=== PATIENT | female | born 1950 | race American Indian/Alaskan Native ===

== ENCOUNTER 2016-12-04 22:47 | Inpatient (IN) | payer MEDICARE ==
[2016-12-05] MEDS ORDERED: ZOFRAN ONE ×2 (00:01→04:04)
[2016-12-05] MEDS ORDERED: ZOFRAN IV ONE (00:06)
[2016-12-05] MEDS ORDERED: NACL 0.9% 1000 ML 1,000 ML IV ONE ×2 (00:32→01:54)
[2016-12-05] MEDS ORDERED: DILAUDID IV ONE ×2 (00:32→04:07)
--- NOTE | 2016-12-05 00:38 | Emergency Department Report ---
ED N/V/D HPI - General Chief complaint: Nausea/Vomiting/Diarrhea Stated complaint: N/V Time Seen by Provider: 12/05/16 00:05 Source: patient, family, EMS Mode of arrival: Stretcher Limitations: No Limitations - History of Present Illness Initial comments: 66-year-old female with a past medical history of diabetes, hypertension, and fibromyalgia presents to the hospital complaints of nausea, vomiting, abdominal 2 days. Patient has had vomiting with poor by mouth intake. She did have diarrhea but that seems to have improved. She denies fever, melena, hematochezia, hematemesis, melena or recent travel. Abdominal surgery includes previous hysterectomy. Pain rated moderate to severe in intensity, described as intermittent cramping in the lower abdomen. - Related Data Home Medications Medication Instructions Recorded Confirmed Last Taken Adalimumab [Humira] 10 mg SQ QMONTH 10/01/15 12/05/16 12/04/16 Cyclobenzaprine HCl [Flexeril 5 MG 5 mg PO TID 10/01/15 12/05/16 12/04/16 TAB] Sertraline [Zoloft] 100 mg PO QDAY 10/01/15 12/05/16 12/04/16 cloNIDine [Catapres] 0.1 mg PO BID 10/01/15 12/05/16 12/04/16 metFORMIN [Glucophage] 500 mg PO QDAY 10/01/15 12/05/16 12/04/16 Previous Rx's Medication Instructions Recorded Last Taken Type Cephalexin [Keflex] 500 mg PO Q6HR #28 capsule 10/02/15 12/04/16 Rx Methocarbamol [Robaxin TAB] 1,500 mg PO TID PRN #30 tab 10/02/15 12/04/16 Rx Permethrin 5% [Acticin 5% CREAM] 1 applicatio TP ONCE #2 tube 10/02/15 12/04/16 Rx Ibuprofen [Motrin 800 MG tab] 1 tab PO Q8HR PRN #30 tablet 01/25/16 12/04/16 Rx Lisinopril/Hydrochlorothiazide 1 tab PO QDAY #30 tablet 02/29/16 12/04/16 Rx [Zestoretic 10-12.5 mg] cloNIDine [Catapres] 0.1 mg PO BID #60 tablet 02/29/16 12/04/16 Rx ALBUTEROL Inhaler [ProAir HFA 2 puff IH QID PRN #1 inhalation 05/04/16 12/04/16 Rx Inhaler] Allergies Allergy/AdvReac Type Severity Reaction Status Date / Time No Known Allergies Allergy Verified 10/01/15 22:26 ED Review of Systems ROS: Stated complaint: N/V Other details as noted in HPI Comment: All other systems reviewed and negative Other: Constitutional: No fevers chills Eyes: No eye pain visual changes ENT: No ear pain or throat pain Neck: Denies pain Respiratory: Denies cough wheezing shortness of breath Cardiovascular: Denies chest pain, palpitations, syncope GI: As per HPI : Denies dysuria Musculoskeletal: Denies back pain Skin: Denies rash, lesions, erythema Neurologic: Denies headache, numbness, weakness Psychiatric: Denies suicidal ideation, hallucinations ED Past Medical Hx - Past Medical History Previous Medical History?: Yes Hx Hypertension: Yes Hx Diabetes: Yes Hx Arthritis: Yes (RA) Hx Asthma: Yes Additional medical history: Lyme Disease, Fibromyalgia hiatal hernia - Surgical History Past Surgical History?: Yes Additional Surgical History: thoracic /neck / back/ganglion cyst removal hyst - Social History Smoking Status: Never Smoker Substance Use Type: Non Opiate Pain, Prescribed - Medications Home Medications: Home Medications Medication Instructions Recorded Confirmed Last Taken Type Adalimumab [Humira] 10 mg SQ QMONTH 10/01/15 12/05/16 12/04/16 History Cyclobenzaprine HCl [Flexeril 5 MG 5 mg PO TID 10/01/15 12/05/16 12/04/16 History TAB] Sertraline [Zoloft] 100 mg PO QDAY 10/01/15 12/05/16 12/04/16 History cloNIDine [Catapres] 0.1 mg PO BID 10/01/15 12/05/16 12/04/16 History metFORMIN [Glucophage] 500 mg PO QDAY 10/01/15 12/05/16 12/04/16 History Cephalexin [Keflex] 500 mg PO Q6HR #28 capsule 10/02/15 12/05/16 12/04/16 Rx Methocarbamol [Robaxin TAB] 1,500 mg PO TID PRN #30 tab 10/02/15 12/05/16 Rx Permethrin 5% [Acticin 5% CREAM] 1 applicatio TP ONCE #2 tube 10/02/15 12/05/16 12/04/16 Rx Ibuprofen [Motrin 800 MG tab] 1 tab PO Q8HR PRN #30 tablet 01/25/16 12/05/16 Rx Lisinopril/Hydrochlorothiazide 1 tab PO QDAY #30 tablet 02/29/16 12/05/16 Rx [Zestoretic 10-12.5 mg] cloNIDine [Catapres] 0.1 mg PO BID #60 tablet 02/29/16 12/05/16 12/04/16 Rx ALBUTEROL Inhaler [ProAir HFA 2 puff IH QID PRN #1 inhalation 05/04/16 12/05/16 12/04/16 Rx Inhaler] ED Physical Exam - General Limitations: No Limitations - Other Other exam information: General: No limitations, not distressed secondary to pain Head exam: Atraumatic, normocephalic Eyes exam: Normal appearance, nonicteric sclerae ENT: Dry mucous membrane Neck exam: Normal inspection, full range of motion Respiratory exam: Clear to auscultation bilateral, no wheezes, rales, crackles Cardiovascular: Normal rate and rhythm, normal heart sounds Abdomen: Soft, nondistended, and generalized lower abdominal tenderness with normal bowel sounds, no rebound, or guarding Extremity: Full range of motion normal inspection no deformity Back: Normal Inspection, full range of motion, no tenderness Neurologic: Alert, oriented x3, cranial nerves intact, no motor or sensory deficit Psychiatric: normal affect, normal mood Skin: Warm, dry, intact ED Course Vital Signs 12/04/16 12/04/16 12/04/16 23:39 23:40 23:46 Temperature 98.7 F Pulse Rate 94 H 105 H Respiratory 19 20 Rate Blood Pressure 184/64 184/64 Blood Pressure 184/64 [Right] O2 Sat by Pulse 99 100 99 Oximetry 12/04/16 12/04/16 12/05/16 23:50 23:52 00:00 Temperature Pulse Rate 92 H 96 H 116 H Respiratory 11 L 19 27 H Rate Blood Pressure 167/61 167/61 167/61 Blood Pressure [Right] O2 Sat by Pulse 100 100 100 Oximetry 12/05/16 12/05/16 12/05/16 00:10 00:20 00:30 Temperature Pulse Rate 95 H 93 H 102 H Respiratory 15 15 24 Rate Blood Pressure 167/61 170/72 170/72 Blood Pressure [Right] O2 Sat by Pulse 99 100 100 Oximetry 12/05/16 12/05/16 12/05/16 00:40 00:50 01:00 Temperature Pulse Rate 101 H 101 H 100 H Respiratory 19 10 L 14 Rate Blood Pressure 154/62 Blood Pressure [Right] O2 Sat by Pulse 99 100 94 Oximetry 12/05/16 12/05/16 12/05/16 01:10 01:20 01:30 Temperature Pulse Rate 100 H 101 H 101 H Respiratory 12 9 L 14 Rate Blood Pressure 166/92 154/76 155/64 Blood Pressure [Right] O2 Sat by Pulse 99 99 98 Oximetry 12/05/16 12/05/16 12/05/16 01:40 01:50 02:00 Temperature Pulse Rate 106 H 98 H 103 H Respiratory 24 13 17 Rate Blood Pressure 155/64 148/64 148/64 Blood Pressure [Right] O2 Sat by Pulse 99 99 98 Oximetry 12/05/16 12/05/16 12/05/16 02:42 02:50 03:00 Temperature Pulse Rate 109 H 106 H 108 H Respiratory 16 11 L 13 Rate Blood Pressure 144/56 144/69 Blood Pressure [Right] O2 Sat by Pulse 99 98 98 Oximetry 12/05/16 12/05/16 12/05/16 03:10 03:20 03:30 Temperature Pulse Rate 106 H 105 H 102 H Respiratory 16 20 16 Rate Blood Pressure 144/69 144/69 140/68 Blood Pressure [Right] O2 Sat by Pulse 99 99 99 Oximetry 12/05/16 12/05/16 12/05/16 03:40 03:50 04:00 Temperature Pulse Rate 100 H 104 H 100 H Respiratory 21 33 H 13 Rate Blood Pressure 140/68 162/52 162/52 Blood Pressure [Right] O2 Sat by Pulse 99 98 99 Oximetry 12/05/16 12/05/16 12/05/16 04:10 04:20 04:30 Temperature Pulse Rate 102 H 106 H 109 H Respiratory 18 20 28 H Rate Blood Pressure 150/70 140/56 140/56 Blood Pressure [Right] O2 Sat by Pulse 97 91 97 Oximetry 12/05/16 12/05/16 12/05/16 04:40 04:50 05:00 Temperature Pulse Rate 103 H 105 H 106 H Respiratory 21 19 18 Rate Blood Pressure 146/54 150/64 142/63 Blood Pressure [Right] O2 Sat by Pulse 91 93 93 Oximetry 12/05/16 12/05/16 05:10 05:20 Temperature Pulse Rate 105 H 108 H Respiratory 17 18 Rate Blood Pressure 142/63 136/63 Blood Pressure [Right] O2 Sat by Pulse 95 93 Oximetry - Reevaluation(s) Reevaluation #1: 12/05/16 00:42 Dilaudid 0.5 mg IV, normal saline, and Zofran ordered Reevaluation #2: 12/05/16 05:42 Patient received 3 L of normal saline and still has a resting tachycardia. She does report feeling somewhat better. ED Medical Decision Making - Lab Data Result diagrams: 12/05/16 00:34 12/05/16 00:34 Lab Results 12/05/16 12/05/16 12/05/16 Range/Units 00:13 00:34 00:34 WBC 12.3 H (4.5-11.0) K/mm3 RBC 4.64 (3.65-5.03) M/mm3 Hgb 12.6 (10.1-14.3) gm/dl Hct 40.3 (30.3-42.9) % MCV 87 (79-97) fl MCH 27 L (28-32) pg MCHC 31 (30-34) % RDW 15.2 (13.2-15.2) % Plt Count 216 (140-440) K/mm3 Lymph % (Auto) 13.7 (13.4-35.0) % [place] % (Auto) 8.6 H (0.0-7.3) % Eos % (Auto) 0.0 (0.0-4.3) % Baso % (Auto) 0.2 (0.0-1.8) % Lymph # 1.7 (1.2-5.4) K/mm3 [place] # 1.0 H (0.0-0.8) K/mm3 Eos # 0.0 (0.0-0.4) K/mm3 Baso # 0.0 (0.0-0.1) K/mm3 Seg Neutrophils % 77.5 H (40.0-70.0) % Seg Neutrophils # 9.5 H (1.8-7.7) K/mm3 Sodium 146 H (137-145) mmol/L Potassium 4.5 (3.6-5.0) mmol/L Chloride 103.5 (98-107) mmol/L Carbon Dioxide 12 L (22-30) mmol/L Anion Gap 35 mmol/L BUN 25 H (7-17) mg/dL Creatinine 1.3 H (0.7-1.2) mg/dL Estimated GFR 50 ml/min BUN/Creatinine Ratio 19.23 % Glucose 109 H (65-100) mg/dL POC Glucose 113 H (70-105) Calcium 9.7 (8.4-10.2) mg/dL Total Bilirubin 0.3 (0.1-1.2) mg/dL AST 19 (5-40) units/L ALT 16 (7-56) units/L Alkaline Phosphatase 58 (35-129) units/L Total Protein 8.6 H (6.3-8.2) g/dL Albumin 4.2 (3.9-5) g/dL Albumin/Globulin Ratio 1.0 % Lipase 28 (13-60) units/L Urine Color (Yellow) Urine Turbidity (Clear) Urine pH (5.0-7.0) Ur Specific [place] (1.003-1.030) Urine Protein (Negative) mg/dL Urine Glucose (UA) (Negative) mg/dL Urine Ketones (Negative) mg/dL Urine Blood (Negative) Urine Nitrite (Negative) Urine Bilirubin (Negative) Urine Urobilinogen (<2.0) mg/dL Ur Leukocyte Esterase (Negative) Urine WBC (Auto) (0.0-6.0) /HPF Urine RBC (Auto) (0.0-6.0) /HPF U Epithel Cells (Auto) (0-13.0) /HPF 12/05/16 Range/Units 01:52 WBC (4.5-11.0) K/mm3 RBC (3.65-5.03) M/mm3 Hgb (10.1-14.3) gm/dl Hct (30.3-42.9) % MCV (79-97) fl MCH (28-32) pg MCHC (30-34) % RDW (13.2-15.2) % Plt Count (140-440) K/mm3 Lymph % (Auto) (13.4-35.0) % [place] % (Auto) (0.0-7.3) % Eos % (Auto) (0.0-4.3) % Baso % (Auto) (0.0-1.8) % Lymph # (1.2-5.4) K/mm3 [place] # (0.0-0.8) K/mm3 Eos # (0.0-0.4) K/mm3 Baso # (0.0-0.1) K/mm3 Seg Neutrophils % (40.0-70.0) % Seg Neutrophils # (1.8-7.7) K/mm3 Sodium (137-145) mmol/L Potassium (3.6-5.0) mmol/L Chloride (98-107) mmol/L Carbon Dioxide (22-30) mmol/L Anion Gap mmol/L BUN (7-17) mg/dL Creatinine (0.7-1.2) mg/dL Estimated GFR ml/min BUN/Creatinine Ratio % Glucose (65-100) mg/dL POC Glucose (70-105) Calcium (8.4-10.2) mg/dL Total Bilirubin (0.1-1.2) mg/dL AST (5-40) units/L ALT (7-56) units/L Alkaline Phosphatase (35-129) units/L Total Protein (6.3-8.2) g/dL Albumin (3.9-5) g/dL Albumin/Globulin Ratio % Lipase (13-60) units/L Urine Color Yellow (Yellow) Urine Turbidity Clear (Clear) Urine pH 5.0 (5.0-7.0) Ur Specific [place] 1.014 (1.003-1.030) Urine Protein 30 mg/dl (Negative) mg/dL Urine Glucose (UA) Neg (Negative) mg/dL Urine Ketones 80 (Negative) mg/dL Urine Blood Neg (Negative) Urine Nitrite Neg (Negative) Urine Bilirubin Neg (Negative) Urine Urobilinogen < 2.0 (<2.0) mg/dL Ur Leukocyte Esterase Neg (Negative) Urine WBC (Auto) < 1.0 (0.0-6.0) /HPF Urine RBC (Auto) 0.0 (0.0-6.0) /HPF U Epithel Cells (Auto) < 1.0 (0-13.0) /HPF - Radiology Data Radiology results: report reviewed (CT abdomen and pelvis with IV contrast: No gross focal inflammatory changes of the abdomen and pelvis. Large and small bowel loops normal in caliber. Moderate stool within segments of the colon. Appendix is normal) - Medical Decision Making Patient has ketones in the urine with a possible anion gap and low bicarbonate. Could be related to acute gastroenteritis with associated dehydration and ketosis. Patient has continued tachycardia despite receiving 3 L of normal saline. Continued pain despite receiving Dilaudid and continued nausea despite receiving Zofran. Additional Reglan and Benadryl also ordered. Patient will be admitted to the hospital for further treatment here CT does not reveal any acute infectious or surgical emergency. - Differential Diagnosis gastroenteritis, appendicitis, diverticulitis, DKA Critical Care Time: No Critical care attestation.: If time is entered above; I have spent that time in minutes in the direct care of this critically ill patient, excluding procedure time. ED Disposition Clinical Impression: Gastroenteritis, Ketosis, Dehydration Disposition: OP ADMITTED IP TO THIS HOSP Is pt being admited?: Yes Does the pt Need Aspirin: No Condition: Stable Time of Disposition: 05:44 (Dr Collado/hosp)
[2016-12-05 01:12] LABS: Basophils % (Auto) 0.2 % (0.0-1.8); Hematocrit 40.3 % (30.3-42.9); Hemoglobin 12.6 gm/dl (10.1-14.3); Mean Corpuscular HGB Conc 31 % (30-34); Mean Corpuscular Hemoglobin 27 pg (28-32); Mean Corpuscular Volume 87 fl (79-97); Platelet Count 216 K/mm3 (140-440); Red Blood Count 4.64 M/mm3 (3.65-5.03); Red Cell Distribution Width 15.2 % (13.2-15.2); White Blood Count 12.3 K/mm3 (4.5-11.0)
[2016-12-05 01:34] LABS: Albumin 4.2 g/dL (3.9-5); BUN/Creatinine Ratio 19.23; Bilirubin,Total 0.3 mg/dL (0.1-1.2); Calcium 9.7 mg/dL (8.4-10.2); Chloride 103.5 mmol/L (98-107); Potassium 4.5 mmol/L (3.6-5.0); Total Protein 8.6 g/dL (6.3-8.2)
[2016-12-05] MEDS ORDERED: NACL ONE (01:36)
[2016-12-05 02:04] LABS: Bilirubin,Urine NEG (Negative); Blood,Urine NEG (Negative); Ketones,Urine 80 mg/dL (Negative); Leukocyte Esterase,Urine NEG (Negative); Nitrite,Urine NEG (Negative); Urobilinogen,Urine < 2.0 mg/dL (<2.0); WBC,Urine < 1.0 /HPF (0.0-6.0)
--- NOTE | 2016-12-05 03:23 | Cat Scan Report ---
FINAL REPORT EXAM: CT ABDOMEN PELVIS W CON HISTORY: abd pain ,n,v,d COMPARISON: None available. TECHNIQUE: Contiguous axial images were obtained. Additional sagittal and coronal reformatted images were obtained. Administration of IV contrast given per institution protocol. Images submitted for interpretation. 100 cc Isovue 300. FINDINGS: Mild linear atelectasis at the lung bases. Diffuse fatty infiltration of the liver with more focal fatty infiltration along the falciform ligament. Mild distention of the gallbladder. No gross inflammatory changes the gallbladder. No calcified gallstones or biliary dilatation. Homogeneous enhancement spleen and pancreas. No adrenal mass. Right renal cyst measuring 1.5 centimeters. 4 millimeter left renal cyst. No solid renal lesion. No hydronephrosis. Severe calcification aorta. Aorta remains normal in caliber. Urinary bladder is grossly unremarkable. Uterus is surgically absent. Bilateral ovaries appear to remain. No free fluid or lymphadenopathy in the pelvic cavity. Large and small bowel loops are normal in caliber. Moderate stool within portions of the colon. The appendix is normal in caliber measuring 5 millimeters. No gross focal inflammatory changes of the bowel. Mild degenerative changes of lumbar spine. Lumbar vertebral body heights are preserved. Bony pelvis is grossly intact. IMPRESSION: No gross focal inflammatory changes of the abdomen and pelvis. Large and small bowel loops normal in caliber. Moderate stool within segments of the colon. The appendix is normal in caliber.
[2016-12-05] MEDS ORDERED: DILAUDID ONE (04:04)
[2016-12-05] MEDS ORDERED: REGLAN IV ONE (04:07)
[2016-12-05] MEDS ORDERED: BENADRYL IV ONE (04:07)
[2016-12-05] MEDS ORDERED: ZOFRAN IV PRN (06:20)
[2016-12-05] MEDS ORDERED: TYLENOL PO PRN (06:20)
[2016-12-05] MEDS ORDERED: DULCOLAX PR PRN (06:20)
[2016-12-05] MEDS ORDERED: MILK OF MAGNESIA PO PRN (06:20)
[2016-12-05] MEDS ORDERED: D50W (25GM) IV PRN (06:20)
--- NOTE | 2016-12-05 06:25 | History and Physical Report ---
History of Present Illness Date of examination: 12/05/16 History of present illness: 66-year-old man with a history of hypertension, diabetes comes emergency room with complaints of nausea vomiting diarrhea 4 days. Denies any fever or chills , recent antibiotic Patient denies chest pain, palpitation, shortness of breath, cough, abdominal pain, hematochezia, dysuria, frequency, focal weakness, dysarthria, fever chills , polydipsia polyuria, hot or cold intolerance, easy bruisability, or rash or bleeding from mucosal membrane, rhinorrhea, epistaxis, earache, tinnitus, blurry vision, eye discharge, anxiety, depression. Other review of systems negative PAST SURGICAL HISTORY: Back surgery, neck surgery SOCIAL HISTORY: Denies alcohol, tobacco, drugs FAMILY HISTORY: Hypertension Medications and Allergies Allergies Allergy/AdvReac Type Severity Reaction Status Date / Time No Known Allergies Allergy Verified 10/01/15 22:26 Home Medications Medication Instructions Recorded Confirmed Last Taken Type Adalimumab [Humira] 10 mg SQ QMONTH 10/01/15 12/05/16 12/04/16 History Cyclobenzaprine HCl [Flexeril 5 MG 5 mg PO TID 10/01/15 12/05/16 12/04/16 History TAB] Sertraline [Zoloft] 100 mg PO QDAY 10/01/15 12/05/16 12/04/16 History cloNIDine [Catapres] 0.1 mg PO BID 10/01/15 12/05/16 12/04/16 History metFORMIN [Glucophage] 500 mg PO QDAY 10/01/15 12/05/16 12/04/16 History Cephalexin [Keflex] 500 mg PO Q6HR #28 capsule 10/02/15 12/05/16 12/04/16 Rx Methocarbamol [Robaxin TAB] 1,500 mg PO TID PRN #30 tab 10/02/15 12/05/16 Rx Permethrin 5% [Acticin 5% CREAM] 1 applicatio TP ONCE #2 tube 10/02/15 12/05/16 12/04/16 Rx Ibuprofen [Motrin 800 MG tab] 1 tab PO Q8HR PRN #30 tablet 01/25/16 12/05/16 Rx Lisinopril/Hydrochlorothiazide 1 tab PO QDAY #30 tablet 02/29/16 12/05/16 Rx [Zestoretic 10-12.5 mg] cloNIDine [Catapres] 0.1 mg PO BID #60 tablet 02/29/16 12/05/16 12/04/16 Rx ALBUTEROL Inhaler [ProAir HFA 2 puff IH QID PRN #1 inhalation 05/04/16 12/05/16 12/04/16 Rx Inhaler] Exam - Physical Exam Narrative exam: Gen. appearance: Patient lying in bed, no apparent distress HEENT: Normocephalic, atraumatic, pupils equally round and reactive to light, extraocular movement intact, and no sclericterus,. No JVD or thyromegaly or nodule,neck supple, no carotid bruit ,mucous membranes dry, no exudate or erythema Heart: S1, S2, regular rate and rhythm Lungs: Clear to auscultation bilaterally, breathing comfortable Abdomen: Positive bowel sounds, nontender, nondistended, no organomegaly Extremity: No edema, cyanosis, clubbing Skin: No rash, nodules, warm, dry Neuro: Oriented 3, cranial nerves II-12 intact, speech is fluent, motor and sensory intact - Constitutional Vitals: Temp Pulse Resp BP Pulse Ox 98.7 F 102 H 22 144/55 98 12/04/16 23:46 12/05/16 06:10 12/05/16 06:10 12/05/16 06:10 12/05/16 06:10 Results - Labs CBC & Chem 7: 12/05/16 00:34 12/05/16 00:34 Labs: Abnormal lab results 12/05/16 12/05/16 12/05/16 Range/Units 00:13 00:34 00:34 WBC 12.3 H (4.5-11.0) K/mm3 MCH 27 L (28-32) pg [place] % (Auto) 8.6 H (0.0-7.3) % [place] # 1.0 H (0.0-0.8) K/mm3 Seg Neutrophils % 77.5 H (40.0-70.0) % Seg Neutrophils # 9.5 H (1.8-7.7) K/mm3 Sodium 146 H (137-145) mmol/L Carbon Dioxide 12 L (22-30) mmol/L BUN 25 H (7-17) mg/dL Creatinine 1.3 H (0.7-1.2) mg/dL Glucose 109 H (65-100) mg/dL POC Glucose 113 H (70-105) Total Protein 8.6 H (6.3-8.2) g/dL - Imaging and Cardiology CT scan - abdomen: report reviewed CT scan - pelvis: report reviewed Assessment and Plan Acute renal failure Gastroenteritis,. viral Hypertension Diabetes of 2 Admits medicine Start IV fluids, send stool studies Check fingersticks initiate insulin sliding scale Start DVT prophylaxis Continued appropriate outpatient medications
[2016-12-05] MEDS ORDERED: NACL 0.45% 1000 ML 1,000 ML IV SCH (07:00)
--- NOTE | 2016-12-05 07:01 | Admit Criteria Form ---
Admission Criteria Documentation: GASTROENTERITIS Clinical Indications for Admission to Inpatient Care (Place 'X' for any and all applicable criteria): Admission is indicated for ANY ONE of the following (1)(2)(3)(4)(5)(6): [ X]I. Inpatient admission required rather than observation care (Also use Gastroenteritis: Observation Care as appropriate) because of ANY ONE of the following: [X ]a) Vomiting that is severe or persistent [ ]b) Dehydration that is severe or persistent [ ]c) Hemodynamic instability that is severe or persistent [ ]d) Signs of intestinal obstruction or peritonitis [A] [ ]e) Hemolytic uremic syndrome is diagnosed. [ ]f) Absent bowel sounds with complete ileus (2) [ ]g) IV fluid to replace significant ongoing losses (greater than 3 L/m2 per day) [ ]h) Parenteral nutrition regimen that must be implemented on inpatient basis [X ]i) Other condition, treatment or monitoring requiring inpatient admission [ ]II. Suspected severe infection (eg, presence of high fever, severe or bloody diarrhea)(7)(8) [ ]III. Severe abdominal tenderness [ ]IV. Toxic megacolon Extended stay beyond goal length of stay may be needed for(4)(5)(6)(18) [ ]a) Persistent vital sign changes, severe electrolyte imbalance, or ongoing fluid losses that require continued hospitalization [ ]b) Other diagnosed cause for gastrointestinal symptoms (eg, intestinal obstruction,inflammatory bowel disease) that requires continued hospitalization [ ]c) Severe Clostridium difficile infection(8)(22) [ ]d) Bacterial dysentery(7) [ ]e) Radiation gastroenteritis [ ]f) Endoscopy with lesion [ ]g) Clinically significant medical comorbidities that require inpatient care [ ]h) Older patients (65 years or older) [ ]i) Hemolytic uremic syndrome (20) [ ]j) Toxic megacolon The original [employer] content created by [employer] has been revised. The portions of the content which have been revised are identified through the use of italic text or in bold, and [facility] has neither reviewed nor approved the modified material. All other unmodified content is copyright [email or web address]. Please see references footnoted in the original [email or web address] edition 2016 Admission Criteria Met: Yes
[2016-12-05] MEDS ORDERED: NACL 0.45% 1000 ML 1,000 ML IV ONE (08:11)
[2016-12-05] MEDS: NOVOLOG SUB-Q SCH ×3 (08:27→18:58)
--- NOTE | 2016-12-05 10:35 | Event Note ---
Date: 12/05/16 Patient was admitted this morning with acute gastroenteritis Medical records reviewed, agreed with the plan of care Continue current management, possible discharge home tomorrow if stable Plan of care discussed with the patient and the nurse verbalized understanding
[2016-12-05] MEDS: LOVENOX SUB-Q SCH (16:24)
[2016-12-05] MEDS ORDERED: PROAIR IH PRN (18:18)
[2016-12-05] MEDS ORDERED: PROVENTIL IH PRN (18:31)
[2016-12-05] MEDS ORDERED: PERCOCET 5/325 PO PRN (18:56)
[2016-12-05] MEDS ORDERED: ACTICIN TP SCH (20:00)
[2016-12-06] MEDS: NOVOLOG SUB-Q SCH ×5 (00:30→23:30)
[2016-12-06 05:32] LABS: Basophils % (Auto) 0.7 % (0.0-1.8); Eosinophils % (Auto) 0.1 % (0.0-4.3); Hematocrit 36.7 % (30.3-42.9); Hemoglobin 11.7 gm/dl (10.1-14.3); Mean Corpuscular HGB Conc 32 % (30-34); Mean Corpuscular Hemoglobin 28 pg (28-32); Mean Corpuscular Volume 87 fl (79-97); Platelet Count 174 K/mm3 (140-440); Red Blood Count 4.22 M/mm3 (3.65-5.03); Red Cell Distribution Width 15.1 % (13.2-15.2); White Blood Count 11.1 K/mm3 (4.5-11.0)
[2016-12-06 05:34] LABS: Anion Gap 25 mmol/L; BUN/Creatinine Ratio 15.45; Blood Urea Nitrogen 17 mg/dL (7-17); Calcium 9.4 mg/dL (8.4-10.2); Carbon Dioxide 16 mmol/L (22-30); Chloride 108.6 mmol/L (98-107); Glucose 119 mg/dL (65-100); Potassium 4.3 mmol/L (3.6-5.0); Sodium 145 mmol/L (137-145)
--- NOTE | 2016-12-06 08:18 | Progress Note ---
Assessment and Plan Assessment and plan: --Acute gastroenteritis probably viral Symptoms significantly improved, continue IV fluids, supportive care Advance diet as tolerated --Hypertension uncontrolled Continue lisinopril, resume clonidine And when necessary hydralazine --Acute renal failure secondary to vasomotor nephropathy ATN, significantly improved --Type 2 diabetes mellitus Accu-Chek sliding scale coverage and ADA diet an oral hypoglycemics --DVT prophylaxis with Lovenox --Full CODE STATUS Closely monitor the patient possible discharge home tomorrow if stable Plan of care discussed with the patient as well as her nurse History Interval history: Patient seen and evaluated this morning medical records reviewed Patient feels slightly better Had 2 loose stools since morning, denies nausea vomiting or abdominal pain Alert awake oriented 3 not in acute distress Hospitalist Physical - Constitutional Vitals: Temp Pulse Resp BP Pulse Ox 98.7 F 91 H 12 195/91 98 12/06/16 07:41 12/06/16 07:41 12/06/16 07:41 12/06/16 07:41 12/06/16 07:41 General appearance: Present: no acute distress, well-nourished - EENT Eyes: Present: PERRL, EOM intact - Neck Neck: Present: supple, normal ROM - Respiratory Respiratory effort: normal Respiratory: negative: rales, rhonchi, wheezing - Cardiovascular Rhythm: regular Heart Sounds: Present: S1 & S2 - Extremities Extremities: no ischemia, pulses intact, pulses symmetrical Peripheral Pulses: within normal limits - Abdominal General gastrointestinal: soft, non-tender, non-distended, normal bowel sounds - Integumentary Integumentary: Present: clear, warm - Psychiatric Psychiatric: appropriate mood/affect, cooperative - Neurologic Neurologic: CNII-XII intact, moves all extremities Results - Labs CBC & Chem 7: 12/06/16 04:36 12/06/16 04:36 Labs: Laboratory Last Values WBC 11.1 K/mm3 (4.5-11.0) H 12/06/16 04:36 RBC 4.22 M/mm3 (3.65-5.03) 12/06/16 04:36 Hgb 11.7 gm/dl (10.1-14.3) 12/06/16 04:36 Hct 36.7 % (30.3-42.9) 12/06/16 04:36 MCV 87 fl (79-97) 12/06/16 04:36 MCH 28 pg (28-32) 12/06/16 04:36 MCHC 32 % (30-34) 12/06/16 04:36 RDW 15.1 % (13.2-15.2) 12/06/16 04:36 Plt Count 174 K/mm3 (140-440) 12/06/16 04:36 Lymph % (Auto) 28.9 % (13.4-35.0) 12/06/16 04:36 [place] % (Auto) 7.7 % (0.0-7.3) H 12/06/16 04:36 Eos % (Auto) 0.1 % (0.0-4.3) 12/06/16 04:36 Baso % (Auto) 0.7 % (0.0-1.8) 12/06/16 04:36 Lymph # 3.2 K/mm3 (1.2-5.4) 12/06/16 04:36 [place] # 0.9 K/mm3 (0.0-0.8) H 12/06/16 04:36 Eos # 0.0 K/mm3 (0.0-0.4) 12/06/16 04:36 Baso # 0.1 K/mm3 (0.0-0.1) 12/06/16 04:36 Seg Neutrophils % 62.6 % (40.0-70.0) 12/06/16 04:36 Seg Neutrophils # 7.0 K/mm3 (1.8-7.7) 12/06/16 04:36 Sodium 145 mmol/L (137-145) 12/06/16 04:36 Potassium 4.3 mmol/L (3.6-5.0) 12/06/16 04:36 Chloride 108.6 mmol/L (98-107) H 12/06/16 04:36 Carbon Dioxide 16 mmol/L (22-30) L 12/06/16 04:36 Anion Gap 25 mmol/L 12/06/16 04:36 BUN 17 mg/dL (7-17) 12/06/16 04:36 Creatinine 1.1 mg/dL (0.7-1.2) 12/06/16 04:36 Estimated GFR > 60 ml/min 12/06/16 04:36 BUN/Creatinine Ratio 15.45 % 12/06/16 04:36 Glucose 119 mg/dL (65-100) H 12/06/16 04:36 POC Glucose 95 (70-105) 12/06/16 05:38 Calcium 9.4 mg/dL (8.4-10.2) 12/06/16 04:36 Total Bilirubin 0.3 mg/dL (0.1-1.2) 12/05/16 00:34 AST 19 units/L (5-40) 12/05/16 00:34 ALT 16 units/L (7-56) 12/05/16 00:34 Alkaline Phosphatase 58 units/L (35-129) 12/05/16 00:34 Total Protein 8.6 g/dL (6.3-8.2) H 12/05/16 00:34 Albumin 4.2 g/dL (3.9-5) 12/05/16 00:34 Albumin/Globulin Ratio 1.0 % 12/05/16 00:34 Lipase 28 units/L (13-60) 12/05/16 00:34 Urine Color Yellow (Yellow) 12/05/16 01:52 Urine Turbidity Clear (Clear) 12/05/16 01:52 Urine pH 5.0 (5.0-7.0) 12/05/16 01:52 Ur Specific [place] 1.014 (1.003-1.030) 12/05/16 01:52 Urine Protein 30 mg/dl mg/dL (Negative) 12/05/16 01:52 Urine Glucose (UA) Neg mg/dL (Negative) 12/05/16 01:52 Urine Ketones 80 mg/dL (Negative) 12/05/16 01:52 Urine Blood Neg (Negative) 12/05/16 01:52 Urine Nitrite Neg (Negative) 12/05/16 01:52 Urine Bilirubin Neg (Negative) 12/05/16 01:52 Urine Urobilinogen < 2.0 mg/dL (<2.0) 12/05/16 01:52 Ur Leukocyte Esterase Neg (Negative) 12/05/16 01:52 Urine WBC (Auto) < 1.0 /HPF (0.0-6.0) 12/05/16 01:52 Urine RBC (Auto) 0.0 /HPF (0.0-6.0) 12/05/16 01:52 U Epithel Cells (Auto) < 1.0 /HPF (0-13.0) 12/05/16 01:52
[2016-12-06] MEDS: GLUCOPHAGE PO SCH (09:24)
[2016-12-06] MEDS: ZESTRIL PO SCH (09:24)
[2016-12-06] MEDS: ZOLOFT PO SCH (09:24)
[2016-12-06] MEDS: HCTZ PO SCH (09:24)
[2016-12-06] MEDS: LOVENOX SUB-Q SCH (09:25)
[2016-12-06] MEDS ORDERED: NON-FORMULARY (Lisinopril/Hydrochlorothiazide [Zestoretic 10-12.5 Mg] 1 TAB) PO SCH (10:00)
[2016-12-06] MEDS ORDERED: CATAPRES PO ONE (19:03)
[2016-12-06] MEDS ORDERED: APRESOLINE IV PRN (19:04)
[2016-12-06] MEDS: CATAPRES PO SCH (23:40)
[2016-12-07] MEDS: NOVOLOG SUB-Q SCH ×4 (07:30→22:37)
[2016-12-07] MEDS: LOVENOX SUB-Q SCH (09:17)
[2016-12-07] MEDS: GLUCOPHAGE PO SCH (09:17)
[2016-12-07] MEDS: HCTZ PO SCH (09:17)
[2016-12-07] MEDS: ZESTRIL PO SCH (09:18)
[2016-12-07] MEDS: ZOLOFT PO SCH (09:18)
[2016-12-07] MEDS: CATAPRES PO SCH ×2 (09:23→22:34)
[2016-12-07] MEDS ORDERED: APRESOLINE PO ONE (11:21)
[2016-12-07] MEDS: APRESOLINE PO SCH ×2 (13:09→22:35)
--- NOTE | 2016-12-07 15:37 | Progress Note ---
Assessment and Plan Assessment and plan: --Acute gastroenteritis probably viral Symptoms significantly improved, continue IV fluids, supportive care Advance diet as tolerated, C. difficile test is pending Encourage oral fluids --Hypertension uncontrolled Continue lisinopril, resume clonidine And when necessary hydralazine adjusted dosages --Acute renal failure secondary to vasomotor nephropathy ATN, significantly improved --Type 2 diabetes mellitus Accu-Chek sliding scale coverage and ADA diet an oral hypoglycemics --DVT prophylaxis with Lovenox --Full CODE STATUS --DC planning, possible d/c 1-2 days if stable Plan of care discussed with the patient as well as her nurse Discussed with Patient's family member over the phone, answered all her questions History Interval history: Patient seen and evaluated medical records reviewed No new events reported by the nursing staff Patient continues to feel very weak, 2 loose stools since morning Mild abdominal pain Alert awake oriented 3 not in acute distress vital signs reviewed Hospitalist Physical - Constitutional Vitals: Temp Pulse Resp BP Pulse Ox 98.4 F 80 18 180/86 99 12/07/16 10:06 12/07/16 10:06 12/07/16 10:06 12/07/16 10:12/07/16 10:06 General appearance: Present: no acute distress, well-nourished - EENT Eyes: Present: PERRL, EOM intact - Neck Neck: Present: supple, normal ROM - Respiratory Respiratory effort: normal Respiratory: bilateral: diminished, negative: rales, rhonchi, wheezing - Cardiovascular Rhythm: regular Heart Sounds: Present: S1 & S2 - Extremities Extremities: no ischemia, pulses intact, pulses symmetrical Peripheral Pulses: within normal limits - Abdominal General gastrointestinal: soft, non-tender, non-distended, normal bowel sounds - Integumentary Integumentary: Present: clear, warm - Psychiatric Psychiatric: appropriate mood/affect, cooperative - Neurologic Neurologic: CNII-XII intact, moves all extremities Results - Labs CBC & Chem 7: 12/06/16 04:36 12/08/16 05:42 Labs: Laboratory Last Values WBC 11.1 K/mm3 (4.5-11.0) H 12/06/16 04:36 RBC 4.22 M/mm3 (3.65-5.03) 12/06/16 04:36 Hgb 11.7 gm/dl (10.1-14.3) 12/06/16 04:36 Hct 36.7 % (30.3-42.9) 12/06/16 04:36 MCV 87 fl (79-97) 12/06/16 04:36 MCH 28 pg (28-32) 12/06/16 04:36 MCHC 32 % (30-34) 12/06/16 04:36 RDW 15.1 % (13.2-15.2) 12/06/16 04:36 Plt Count 174 K/mm3 (140-440) 12/06/16 04:36 Lymph % (Auto) 28.9 % (13.4-35.0) 12/06/16 04:36 [place] % (Auto) 7.7 % (0.0-7.3) H 12/06/16 04:36 Eos % (Auto) 0.1 % (0.0-4.3) 12/06/16 04:36 Baso % (Auto) 0.7 % (0.0-1.8) 12/06/16 04:36 Lymph # 3.2 K/mm3 (1.2-5.4) 12/06/16 04:36 [place] # 0.9 K/mm3 (0.0-0.8) H 12/06/16 04:36 Eos # 0.0 K/mm3 (0.0-0.4) 12/06/16 04:36 Baso # 0.1 K/mm3 (0.0-0.1) 12/06/16 04:36 Seg Neutrophils % 62.6 % (40.0-70.0) 12/06/16 04:36 Seg Neutrophils # 7.0 K/mm3 (1.8-7.7) 12/06/16 04:36 Sodium 145 mmol/L (137-145) 12/06/16 04:36 Potassium 4.3 mmol/L (3.6-5.0) 12/06/16 04:36 Chloride 108.6 mmol/L (98-107) H 12/06/16 04:36 Carbon Dioxide 16 mmol/L (22-30) L 12/06/16 04:36 Anion Gap 25 mmol/L 12/06/16 04:36 BUN 17 mg/dL (7-17) 12/06/16 04:36 Creatinine 1.1 mg/dL (0.7-1.2) 12/06/16 04:36 Estimated GFR > 60 ml/min 12/06/16 04:36 BUN/Creatinine Ratio 15.45 % 12/06/16 04:36 Glucose 119 mg/dL (65-100) H 12/06/16 04:36 POC Glucose 102 (70-105) 12/07/16 11:42 Calcium 9.4 mg/dL (8.4-10.2) 12/06/16 04:36 Total Bilirubin 0.3 mg/dL (0.1-1.2) 12/05/16 00:34 AST 19 units/L (5-40) 12/05/16 00:34 ALT 16 units/L (7-56) 12/05/16 00:34 Alkaline Phosphatase 58 units/L (35-129) 12/05/16 00:34 Total Protein 8.6 g/dL (6.3-8.2) H 12/05/16 00:34 Albumin 4.2 g/dL (3.9-5) 12/05/16 00:34 Albumin/Globulin Ratio 1.0 % 12/05/16 00:34 Lipase 28 units/L (13-60) 12/05/16 00:34 Urine Color Yellow (Yellow) 12/05/16 01:52 Urine Turbidity Clear (Clear) 12/05/16 01:52 Urine pH 5.0 (5.0-7.0) 12/05/16 01:52 Ur Specific [place] 1.014 (1.003-1.030) 12/05/16 01:52 Urine Protein 30 mg/dl mg/dL (Negative) 12/05/16 01:52 Urine Glucose (UA) Neg mg/dL (Negative) 12/05/16 01:52 Urine Ketones 80 mg/dL (Negative) 12/05/16 01:52 Urine Blood Neg (Negative) 12/05/16 01:52 Urine Nitrite Neg (Negative) 12/05/16 01:52 Urine Bilirubin Neg (Negative) 12/05/16 01:52 Urine Urobilinogen < 2.0 mg/dL (<2.0) 12/05/16 01:52 Ur Leukocyte Esterase Neg (Negative) 12/05/16 01:52 Urine WBC (Auto) < 1.0 /HPF (0.0-6.0) 12/05/16 01:52 Urine RBC (Auto) 0.0 /HPF (0.0-6.0) 12/05/16 01:52 U Epithel Cells (Auto) < 1.0 /HPF (0-13.0) 12/05/16 01:52
[2016-12-08] MEDS: APRESOLINE PO SCH ×2 (05:52→13:44)
[2016-12-08 06:22] LABS: BUN/Creatinine Ratio 16.66; Blood Urea Nitrogen 15 mg/dL (7-17); Calcium 9.4 mg/dL (8.4-10.2); Carbon Dioxide 23 mmol/L (22-30); Glucose 110 mg/dL (65-100); Magnesium 1.9 mg/dL (1.7-2.3); Potassium 3.4 mmol/L (3.6-5.0); Sodium 145 mmol/L (137-145)
[2016-12-08 06:39] LABS: Anion Gap 20 mmol/L
[2016-12-08] MEDS: NOVOLOG SUB-Q SCH ×2 (07:30→12:31)
[2016-12-08 08:27] VITALS: BP 157/83
[2016-12-08] MEDS ORDERED: K-DUR PO ONE (09:12)
[2016-12-08] MEDS: LOVENOX SUB-Q SCH (09:42)
[2016-12-08] MEDS: GLUCOPHAGE PO SCH (09:43)
[2016-12-08] MEDS: HCTZ PO SCH (09:43)
[2016-12-08] MEDS: ZESTRIL PO SCH (09:43)
[2016-12-08] MEDS: CATAPRES PO SCH (09:43)
[2016-12-08] MEDS: ZOLOFT PO SCH (09:43)
--- NOTE | 2016-12-08 11:12 | Discharge Summary ---
Providers - Providers Date of Admission: 12/05/16 06:20 Date of discharge: 12/08/16 Attending physician: JAVIER SWIFT Primary care physician: NAPPER RUNNER Hospitalization Condition: Stable Disposition: STILL A PATIENT Exam - Constitutional Vitals: Temp Pulse Resp BP Pulse Ox 97.5 F L 95 H 16 157/83 98 12/08/16 08:25 12/08/16 08:25 12/08/16 08:25 12/08/16 08:25 12/08/16 08:25 Plan Activity: advance as tolerated Follow up with: PRIMARY CARE, [Primary Care Provider] - 7 Days Prescriptions: hydrALAZINE [Apresoline TAB] 25 mg PO Q8HR #60 tablet oxyCODONE /ACETAMINOPHEN [Percocet 5/325 mg] 1 tab PO QHS PRN #7 tablet PRN Reason: Pain, Moderate (4-6)
== END 2016-12-08 15:24 | disposition home or self-care (01) | DRG 391 ==
LOC: ED 22:47 → 3A 12-05 06:20
PROVIDERS: ADMIT Internal Medicine; ATTEND Internal Medicine
DX: A08.4 Viral intestinal infection, unspecified (principal); N17.0 Acute kidney failure with tubular necrosis; I10 Essential (primary) hypertension; E11.9 Type 2 diabetes mellitus without complications; M79.7 Fibromyalgia; M19.90 Unspecified osteoarthritis, unspecified site; J45.909 Unspecified asthma, uncomplicated; E88.89 Other specified metabolic disorders; E86.0 Dehydration; Z82.49 Family history of ischemic heart disease and other diseases of the circulatory system; Z90.710 Acquired absence of both cervix and uterus; Z79.84 Long term (current) use of oral hypoglycemic drugs
CPT/HCPCS: 36415; 74177; 80048; 80053; 81001; 82962; 83690; 83735; 85025; 96361; 96374; 96375; 96376; J1170; J1200; J1650; J2405; J2765; J7030; Q9967

== ENCOUNTER 2017-09-26 10:48 | Outpatient (CLI) | payer MEDICARE ==
--- NOTE | 2017-09-26 15:29 | Mammography Report ---
BILATERAL DIGITAL SCREENING MAMMOGRAM with CAD : 09/26/17 10:48:00 CLINICAL: Routine screening. COMPARISON:None available. Her previous mammogram was probably in [place]. FINDINGS: The breasts are heterogeneously dense, which may obscure small masses.Bilateral benign calcifications. No mass, architectural distortion or suspicious calcifications. IMPRESSION: No mammographic evidence of malignancy. BI-RADS CATEGORY: 2 -- Benign RECOMMENDATION: Routine mammographic screening in one year. COMMENT: Patient follow-up letters are generated by our [employer] application.
== END 2017-09-26 10:49 | disposition home or self-care (01) ==
LOC: MAMMO 10:48
PROVIDERS: ATTEND Internal Medicine
DX: Z12.31 Encounter for screening mammogram for malignant neoplasm of breast (principal)
CPT/HCPCS: 77067

== ENCOUNTER 2018-02-15 11:29 | Emergency (ER) | payer MEDICARE ==
[2018-02-15 11:36] VITALS: BP 182/81
--- NOTE | 2018-02-15 12:33 | Emergency Department Report ---
ED Back Pain/Injury HPI - General Chief Complaint: Back Pain/Injury Stated Complaint: FALL/LEFT KNEE/BACK PAIN Time Seen by Provider: 02/15/18 12:05 Source: patient Limitations: No Limitations - History of Present Illness Initial Comments: Patient reports low left back pain that started two days ago after her right foot slipped in her sandal, subsequently causing her to twist her back to get her balance. She denies incontinence, tingling, difficulty walking or saddle paresthesia Complaint: back pain Onset/Timin -: days(s) Similar Symptoms Previously: Yes Place: street Radiation: left leg Severity: severe Severity scale (0 -10): 9 Quality: aching Consistency: constant Improves With: immobilization Worsens With: movement Context: turning/twisting Associated Symptoms: denies other symptoms. denies: confusion, weakness, chest pain, numbness, difficulty walking, cough, difficulty urinating, diaphoresis, incontinence, fever/chills, constipation, headaches, abdominal pain, loss of appetite, malaise, nausea/vomiting, rash, seizure, shortness of breath, syncope Treatments Prior to Arrival: heat therapy - Related Data Home Medications Medication Instructions Recorded Confirmed Last Taken Adalimumab [Humira] 10 mg SQ QMONTH 10/01/15 12/05/16 12/04/16 Sertraline [Zoloft] 100 mg PO QDAY 10/01/15 12/05/16 12/04/16 metFORMIN [Glucophage] 500 mg PO QDAY 10/01/15 12/05/16 12/04/16 Previous Rx's Medication Instructions Recorded Last Taken Type Cephalexin [Keflex] 500 mg PO Q6HR #28 capsule 10/02/15 12/04/16 Rx Methocarbamol [Robaxin TAB] 1,500 mg PO TID PRN #30 tab 10/02/15 12/04/16 Rx Permethrin 5% [Acticin 5% CREAM] 1 applicatio TP ONCE #2 tube 10/02/15 12/04/16 Rx Ibuprofen [Motrin 800 MG tab] 1 tab PO Q8HR PRN #30 tablet 01/25/16 12/04/16 Rx Lisinopril/Hydrochlorothiazide 1 tab PO QDAY #30 tablet 02/29/16 12/04/16 Rx [Zestoretic 10-12.5 mg] cloNIDine [Catapres] 0.1 mg PO BID #60 tablet 02/29/16 12/04/16 Rx ALBUTEROL Inhaler [ProAir HFA 2 puff IH QID PRN #1 inhalation 05/04/16 12/04/16 Rx Inhaler] hydrALAZINE [Apresoline TAB] 25 mg PO Q8HR #60 tablet 12/08/16 Unknown Rx oxyCODONE /ACETAMINOPHEN [Percocet 1 tab PO QHS PRN #7 tablet 12/08/16 Unknown Rx 5/325 mg] Diclofenac Sodium 50 mg PO BID #20 tablet. 02/15/18 Unknown Rx methOCARBAMOL [Robaxin TAB] 500 mg PO Q6H PRN #30 tablet 02/15/18 Unknown Rx predniSONE [Deltasone] 20 mg PO BID #10 tablet 02/15/18 Unknown Rx Allergies Allergy/AdvReac Type Severity Reaction Status Date / Time No Known Allergies Allergy Verified 02/15/18 11:33 ED Review of Systems ROS: Stated complaint: FALL/LEFT KNEE/BACK PAIN Other details as noted in HPI Constitutional: denies: chills, fever Eyes: denies: eye pain, eye discharge, vision change ENT: denies: ear pain, throat pain Respiratory: denies: cough, orthopnea, shortness of breath, SOB with exertion, SOB at rest, stridor, wheezing Cardiovascular: denies: chest pain, palpitations, dyspnea on exertion, orthopnea , edema, syncope, paroxysmal nocturnal dyspnea Gastrointestinal: denies: abdominal pain, nausea, vomiting, diarrhea, constipation, hematemesis, melena, hematochezia Musculoskeletal: back pain. denies: joint swelling, arthralgia Skin: denies: rash, lesions, change in color, change in hair/nails, pruritus Neurological: denies: headache, weakness, paresthesias, confusion, abnormal gait , vertigo Psychiatric: denies: anxiety, depression Hematological/Lymphatic: denies: easy bleeding, easy bruising ED Past Medical Hx - Past Medical History Hx Hypertension: Yes Hx Diabetes: Yes Hx Arthritis: Yes (RA) Hx Asthma: Yes Additional medical history: Lyme Disease, Fibromyalgia hiatal hernia - Surgical History Additional Surgical History: thoracic /neck / back/ganglion cyst removal hyst - Social History Smoking Status: Never Smoker Substance Use Type: None - Medications Home Medications: Home Medications Medication Instructions Recorded Confirmed Last Taken Type Adalimumab [Humira] 10 mg SQ QMONTH 10/01/15 12/05/16 12/04/16 History Sertraline [Zoloft] 100 mg PO QDAY 10/01/15 12/05/16 12/04/16 History metFORMIN [Glucophage] 500 mg PO QDAY 10/01/15 12/05/16 12/04/16 History Cephalexin [Keflex] 500 mg PO Q6HR #28 capsule 10/02/15 12/05/16 12/04/16 Rx Methocarbamol [Robaxin TAB] 1,500 mg PO TID PRN #30 tab 10/02/15 12/05/16 Rx Permethrin 5% [Acticin 5% CREAM] 1 applicatio TP ONCE #2 tube 10/02/15 12/05/16 12/04/16 Rx Ibuprofen [Motrin 800 MG tab] 1 tab PO Q8HR PRN #30 tablet 01/25/16 12/05/16 Rx Lisinopril/Hydrochlorothiazide 1 tab PO QDAY #30 tablet 02/29/16 12/05/16 Rx [Zestoretic 10-12.5 mg] cloNIDine [Catapres] 0.1 mg PO BID #60 tablet 02/29/16 12/05/16 12/04/16 Rx ALBUTEROL Inhaler [ProAir HFA 2 puff IH QID PRN #1 inhalation 05/04/16 12/05/16 12/04/16 Rx Inhaler] hydrALAZINE [Apresoline TAB] 25 mg PO Q8HR #60 tablet 12/08/16 Unknown Rx oxyCODONE /ACETAMINOPHEN [Percocet 1 tab PO QHS PRN #7 tablet 12/08/16 Unknown Rx 5/325 mg] Diclofenac Sodium 50 mg PO BID #20 tablet. 02/15/18 Unknown Rx methOCARBAMOL [Robaxin TAB] 500 mg PO Q6H PRN #30 tablet 02/15/18 Unknown Rx predniSONE [Deltasone] 20 mg PO BID #10 tablet 02/15/18 Unknown Rx ED Physical Exam - General Limitations: No Limitations General appearance: alert, in no apparent distress - Head Head exam: Present: atraumatic, normocephalic - Eye Eye exam: Present: normal appearance, PERRL, EOMI - Neck Neck exam: Present: normal inspection, full ROM. Absent: tenderness, meningismus, lymphadenopathy, thyromegaly - Respiratory Respiratory exam: Present: normal lung sounds bilaterally. Absent: respiratory distress, wheezes, rales, rhonchi, stridor, chest wall tenderness, accessory muscle use, decreased breath sounds, prolonged expiratory - Cardiovascular Cardiovascular Exam: Present: regular rate, normal rhythm, normal heart sounds. Absent: systolic murmur, diastolic murmur, rubs, gallop - Extremities Exam Extremities exam: Present: normal inspection, full ROM, normal capillary refill. Absent: tenderness, pedal edema, joint swelling, calf tenderness - Back Exam Back exam: Present: normal inspection, full ROM, tenderness (left gluteal and left hamstring). Absent: CVA tenderness (R), CVA tenderness (L), muscle spasm, paraspinal tenderness, vertebral tenderness, rash noted - Neurological Exam Neurological exam: Present: alert, oriented X3, CN II-XII intact, normal gait, reflexes normal. Absent: motor sensory deficit - Psychiatric Psychiatric exam: Present: normal affect, normal mood - Skin Skin exam: Present: warm, dry, intact, normal color. Absent: rash ED Course Vital Signs 02/15/18 11:34 Temperature 99 F Pulse Rate 92 H Respiratory 18 Rate Blood Pressure 182/81 O2 Sat by Pulse 100 Oximetry ED Medical Decision Making - Lab Data Vital Signs 02/15/18 11:34 Temperature 99 F Pulse Rate 92 H Respiratory 18 Rate Blood Pressure 182/81 O2 Sat by Pulse 100 Oximetry - Medical Decision Making During the course of ED, all other systems are unremarkable except for documentation in HPI. Patient was sent home with prescriptions for Diclofenac Sodium, Prednisone and Robaxin, instructed to follow up with her PCP, she verbalized understanding - Differential Diagnosis Back Pain with Sciatica, Left Hip Pain Critical care attestation.: If time is entered above; I have spent that time in minutes in the direct care of this critically ill patient, excluding procedure time. ED Disposition Clinical Impression: Back pain Qualifiers: Back pain location: low back pain Chronicity: acute Back pain laterality: left Sciatica presence: with sciatica Sciatica laterality: sciatica of left side Qualified Code(s): M54.42 - Lumbago with sciatica, left side Disposition: - TO HOME OR SELFCARE Is pt being admited?: No Does the pt Need Aspirin: No Condition: Stable Instructions: Back Pain (ED) Additional Instructions: Take medication as directed. No driving or drinking while taking medications Prescriptions: Diclofenac Sodium 50 mg PO BID #20 tablet. methOCARBAMOL [Robaxin TAB] 500 mg PO Q6H PRN #30 tablet PRN Reason: muscle spasms predniSONE [Deltasone] 20 mg PO BID #10 tablet Referrals: PRIMARY CARE, [Primary Care Provider] - 3-5 Days Time of Disposition: 12:33
== END 2018-02-15 12:39 | disposition home or self-care (01) ==
LOC: ED 11:29
DX: M54.42 Lumbago with sciatica, left side (principal); I10 Essential (primary) hypertension; E11.9 Type 2 diabetes mellitus without complications; M06.9 Rheumatoid arthritis, unspecified; J45.909 Unspecified asthma, uncomplicated; M79.7 Fibromyalgia
CPT/HCPCS: 99282

== ENCOUNTER 2018-04-05 12:15 | Emergency (ER) | payer MEDICARE ==
[2018-04-05] MEDS ORDERED: MOTRIN PO ONE (14:37)
[2018-04-05] MEDS ORDERED: NORCO 5/325 PO ONE (14:37)
[2018-04-05] MEDS ORDERED: DELTASONE PO ONE (14:37)
--- NOTE | 2018-04-05 14:37 | Emergency Department Report ---
ED Extremity Problem HPI - General Chief complaint: Extremity Injury, Lower Stated complaint: LFT KNEE PAIN Time Seen by Provider: 04/05/18 14:29 Source: patient, family Mode of arrival: Ambulatory Limitations: No Limitations - History of Present Illness Initial comments: This is a 68-year-old female here with left knee pain and reported that she stumbled 2 months ago and she thinks she injured her knee but when she came they treated her for back pain and neuropathy and he did not treat knee. She said that now she is walking to compensate for left knee pain. She is also reporting that her back pain is now returning. She walks with a cane due to rheumatoid arthritis. Pain is located to the left knee tenderness tendon achy. History of Lyme disease, fibromyalgia, rheumatoid arthritis, diet-controlled diabetes and hypertension. Denies any chest pain or shortness of breath. Denies any numbness or tingling to extremities. Denies any swelling to extremities. Pain is worse with movement and no alleviating factors. She denies taking any medication for pain. MD Complaint: joint swelling, joint paint Onset/Timin -: month(s) Location: left, lower extremity, knee History of Same: Yes -: No myalgia, Yes arthralgia, No fever, No associated dyspnea Radiation: none Severity scale (0 -10): 10 Quality: aching Consistency: constant Improves with: nothing Worsens with: weight bearing, walking Associated Symptoms: arthralgias. denies: chest pain, shortness of breath, fever, myalgias, rash - Related Data Home Medications Medication Instructions Recorded Confirmed Last Taken Adalimumab [Humira] 10 mg SQ QMONTH 10/01/15 12/05/16 12/04/16 Sertraline [Zoloft] 100 mg PO QDAY 10/01/15 12/05/16 12/04/16 metFORMIN [Glucophage] 500 mg PO QDAY 10/01/15 12/05/16 12/04/16 Previous Rx's Medication Instructions Recorded Last Taken Type Cephalexin [Keflex] 500 mg PO Q6HR #28 capsule 10/02/15 12/04/16 Rx Methocarbamol [Robaxin TAB] 1,500 mg PO TID PRN #30 tab 10/02/15 12/04/16 Rx Permethrin 5% [Acticin 5% CREAM] 1 applicatio TP ONCE #2 tube 10/02/15 12/04/16 Rx Ibuprofen [Motrin 800 MG tab] 1 tab PO Q8HR PRN #30 tablet 01/25/16 12/04/16 Rx Lisinopril/Hydrochlorothiazide 1 tab PO QDAY #30 tablet 02/29/16 12/04/16 Rx [Zestoretic 10-12.5 mg] cloNIDine [Catapres] 0.1 mg PO BID #60 tablet 02/29/16 12/04/16 Rx ALBUTEROL Inhaler [ProAir HFA 2 puff IH QID PRN #1 inhalation 05/04/16 12/04/16 Rx Inhaler] hydrALAZINE [Apresoline TAB] 25 mg PO Q8HR #60 tablet 12/08/16 Unknown Rx oxyCODONE /ACETAMINOPHEN [Percocet 1 tab PO QHS PRN #7 tablet 12/08/16 Unknown Rx 5/325 mg] Diclofenac Sodium 50 mg PO BID #20 tablet. 02/15/18 Unknown Rx methOCARBAMOL [Robaxin TAB] 500 mg PO Q6H PRN #30 tablet 02/15/18 Unknown Rx predniSONE [Deltasone] 20 mg PO BID #10 tablet 02/15/18 Unknown Rx traMADol [Ultram 50 MG tab] 50 mg PO Q6HR PRN #20 tablet 04/05/18 Unknown Rx Allergies Allergy/AdvReac Type Severity Reaction Status Date / Time No Known Allergies Allergy Verified 02/15/18 11:33 ED Review of Systems ROS: Stated complaint: LFT KNEE PAIN Other details as noted in HPI Constitutional: denies: chills, fever Eyes: denies: eye pain, vision change ENT: denies: ear pain, throat pain, congestion Respiratory: denies: cough, shortness of breath, SOB with exertion, SOB at rest , stridor, wheezing Cardiovascular: denies: chest pain, palpitations, edema, syncope Gastrointestinal: denies: abdominal pain, nausea, vomiting, diarrhea Genitourinary: denies: urgency, dysuria, frequency, hematuria, discharge, abnormal menses, dyspareunia Musculoskeletal: joint swelling, arthralgia. denies: back pain, myalgia Skin: denies: rash, lesions Neurological: denies: headache, weakness, numbness, paresthesias, confusion, abnormal gait, vertigo ED Past Medical Hx - Past Medical History Previous Medical History?: Yes Hx Hypertension: Yes Hx Diabetes: Yes (boarderline) Hx Arthritis: Yes (RA,fibromyalgia) Hx Seizures: Yes Hx Asthma: Yes Additional medical history: Lyme Disease, Fibromyalgia hiatal hernia - Surgical History Past Surgical History?: Yes Additional Surgical History: thoracic /neck / back/ganglion cyst removal hyst, L456 surgery,cervicle surgery - Family History Family history: hypertension - Social History Smoking Status: Never Smoker Substance Use Type: None - Medications Home Medications: Home Medications Medication Instructions Recorded Confirmed Last Taken Type Adalimumab [Humira] 10 mg SQ QMONTH 10/01/15 12/05/16 12/04/16 History Sertraline [Zoloft] 100 mg PO QDAY 10/01/15 12/05/16 12/04/16 History metFORMIN [Glucophage] 500 mg PO QDAY 10/01/15 12/05/16 12/04/16 History Cephalexin [Keflex] 500 mg PO Q6HR #28 capsule 10/02/15 12/05/16 12/04/16 Rx Methocarbamol [Robaxin TAB] 1,500 mg PO TID PRN #30 tab 10/02/15 12/05/16 Rx Permethrin 5% [Acticin 5% CREAM] 1 applicatio TP ONCE #2 tube 10/02/15 12/05/16 12/04/16 Rx Ibuprofen [Motrin 800 MG tab] 1 tab PO Q8HR PRN #30 tablet 01/25/16 12/05/16 Rx Lisinopril/Hydrochlorothiazide 1 tab PO QDAY #30 tablet 02/29/16 12/05/16 Rx [Zestoretic 10-12.5 mg] cloNIDine [Catapres] 0.1 mg PO BID #60 tablet 02/29/16 12/05/16 12/04/16 Rx ALBUTEROL Inhaler [ProAir HFA 2 puff IH QID PRN #1 inhalation 05/04/16 12/05/16 12/04/16 Rx Inhaler] hydrALAZINE [Apresoline TAB] 25 mg PO Q8HR #60 tablet 12/08/16 Unknown Rx oxyCODONE /ACETAMINOPHEN [Percocet 1 tab PO QHS PRN #7 tablet 12/08/16 Unknown Rx 5/325 mg] Diclofenac Sodium 50 mg PO BID #20 tablet. 02/15/18 Unknown Rx methOCARBAMOL [Robaxin TAB] 500 mg PO Q6H PRN #30 tablet 02/15/18 Unknown Rx predniSONE [Deltasone] 20 mg PO BID #10 tablet 02/15/18 Unknown Rx traMADol [Ultram 50 MG tab] 50 mg PO Q6HR PRN #20 tablet 04/05/18 Unknown Rx ED Physical Exam - General Limitations: No Limitations General appearance: alert, in no apparent distress - Head Head exam: Present: atraumatic, normocephalic, normal inspection - Eye Eye exam: Present: normal appearance, PERRL, EOMI Pupils: Present: normal accommodation - ENT ENT exam: Present: normal exam, normal orophraynx, mucous membranes moist, TM's normal bilaterally, normal external ear exam - Neck Neck exam: Present: normal inspection, full ROM, other (no C-spine tenderness). Absent: tenderness, lymphadenopathy - Respiratory Respiratory exam: Present: normal lung sounds bilaterally. Absent: respiratory distress, chest wall tenderness - Cardiovascular Cardiovascular Exam: Present: regular rate, normal rhythm, normal heart sounds. Absent: systolic murmur, diastolic murmur - GI/Abdominal GI/Abdominal exam: Present: soft, normal bowel sounds. Absent: distended, tenderness, guarding, rebound, rigid, organomegaly, mass - Extremities Exam Extremities exam: Present: normal inspection, full ROM (she is able to flex and extend her left knee but has pain), tenderness (tenderness to palpate anterior knee), normal capillary refill, joint swelling (left knee), other (No cce. + 2 pulses in all extremities, no neurovascular compromise). Absent: pedal edema, calf tenderness - Expanded Lower Extremity Exam Left Hip exam: Present: normal inspection, full ROM, pelvic stability. Absent: tenderness, swelling, abrasion, laceration, ecchymosis, deformity, crepidus, dislocation, erythema, external rotation, internal rotation, shortening Upper Leg exam: Present: normal inspection, full ROM. Absent: tenderness, swelling, abrasion, laceration, ecchymosis, deformity, crepidus, dislocation, erythema Knee exam: Present: full ROM (Limited range of motion to left knee), tenderness (left anterior knee), swelling (left anterior knee), full knee extension. Absent: normal inspection, abrasion, laceration, ecchymosis, deformity, crepidus , dislocation, erythema, effusion, pain w/ pronation/supination, posterior draw sign, pain/laxity with valgus, pain/laxity with varus Lower Leg exam: Present: normal inspection, full ROM. Absent: tenderness, swelling, abrasion, laceration, ecchymosis, deformity, crepidus, dislocation, erythema, palpable cord, Mil's sign Ankle exam: Present: normal inspection, full ROM. Absent: tenderness, swelling , abrasion, laceration, ecchymosis, deformity, crepidus, dislocation, erythema, anterior draw sign Foot/Toe exam: Present: normal inspection, full ROM. Absent: tenderness, swelling, abrasion, laceration, ecchymosis, deformity, crepidus, dislocation, erythema, amputation, puncture wound, foreign body, calcaneal tenderness, tenderness at base of 5th metatarsal, nail avulsion, subungual hematoma Neuro vascular tendon exam: Present: no vascular compromise. Absent: pulse deficit, abnormal cap refill, motor deficit, sensory deficit, tendon deficit, extremity cold to touch, pallor, abnormal 2-point discrimination, decreased fine /light touch, foot drop, peroneal nerve deficit, significant pain with passive ROM of distal joint Gait: Positive: observed and limited by pain - Back Exam Back exam: Present: normal inspection, full ROM, other (ambulates with a limp due to chronic pain). Absent: tenderness, CVA tenderness (R), CVA tenderness (L ), muscle spasm, paraspinal tenderness, vertebral tenderness, rash noted - Neurological Exam Neurological exam: Present: alert, oriented X3, abnormal gait (due to chronic pain and ambulates with a cane), reflexes normal - Psychiatric Psychiatric exam: Present: normal affect, normal mood - Skin Skin exam: Present: warm, dry, intact, normal color. Absent: rash ED Course Vital Signs 04/05/18 12:37 Temperature 97.9 F Pulse Rate 99 H Respiratory 16 Rate Blood Pressure 154/80 O2 Sat by Pulse 99 Oximetry - Reevaluation(s) Reevaluation #1: 04/05/18 17:32 Patient received 60 mg of Deltasone, hydrocodone 7.5/325 mg 1 tablet by mouth and Motrin 6 mg by mouth for relief of pain .Derek wrap to left knee - Orthopedic Splinting/Casting Injury #1 Side: left Upper Extremity Immobilizer: Derek wrap Lower Extremity Injury Location: knee ED Medical Decision Making - Radiology Data Radiology results: report reviewed X-ray of left knee 3 views dictated by radiologist and reviewed by myself. Patient with normal x-ray. Patient: TRAVIS KASPER MR#: [id number] : 1950 Acct:[id number] Age/Sex: 68 / F ADM Date: 04/05/18 Loc: ED Attending Dr: Ordering Physician: PARUL BONILLA Date of Service: 04/05/18 Procedure(s): XR knee 3V LT Accession Number(s): [id number] cc: PARUL BONILLA Fluoro Time In Minutes: FINAL REPORT EXAM: XR KNEE 3V LT HISTORY: fall with left knee pain TECHNIQUE: Left knee three views PRIORS: None. FINDINGS: No fracture is identified. No dislocation seen. No evidence of joint effusion. Patella demonstrates normal positioning. No acute bony abnormality identified. IMPRESSION: Negative knee series Transcribed By: KIYA Dictated By: DEJAH BARLOW MD Electronically Authenticated By: DEJAH BARLOW MD Signed Date/Time: 04/05/181614 DD/ 14 TD/TT: 04/05/181614 - Differential Diagnosis knee fracture, knee sprain, strain, musculoskeletal pain, neuropathy Critical care attestation.: If time is entered above; I have spent that time in minutes in the direct care of this critically ill patient, excluding procedure time. ED Disposition Clinical Impression: Arthralgia of knee, left Disposition: DC-01 TO HOME OR SELFCARE Is pt being admited?: No Does the pt Need Aspirin: No Condition: Stable Instructions: Arthralgia (ED), Knee Exercises (GEN), Knee Pain (ED) Additional Instructions: These follow-up with orthopedic doctor regarding chronic knee pain. Take Ultram for pain but he is not drive or operate heavy machinery while taking this medication Referrals: ALDEN PABLO MD [Primary Care Provider] - 2-3 Days RAMÍREZ PRUITT MD [Staff Physician] - 2-3 Days Forms: Work/School Release Form(ED)
--- NOTE | 2018-04-05 16:22 | XRay Report ---
FINAL REPORT EXAM: XR KNEE 3V LT HISTORY: fall with left knee pain TECHNIQUE: Left knee three views PRIORS: None. FINDINGS: No fracture is identified. No dislocation seen. No evidence of joint effusion. Patella demonstrates normal positioning. No acute bony abnormality identified. IMPRESSION: Negative knee series
[2018-04-05 17:44] VITALS: BP 110/74
== END 2018-04-05 17:52 | disposition home or self-care (01) ==
LOC: ED 12:15
DX: M25.562 Pain in left knee (principal); I10 Essential (primary) hypertension; M06.9 Rheumatoid arthritis, unspecified
CPT/HCPCS: 73562; 99283; J7512

== ENCOUNTER 2018-11-11 07:42 | Outpatient (CLI) | payer MEDICARE ==
--- NOTE | 2018-11-11 08:55 | Magnetic Resonance Report ---
MRI scan of cervical spine: History: Cervicalagia. Technique: Multiplanar multisequence images were obtained without contrast injection. Findings: The cervicomedullary junction and cerebellar tonsils appears normal. Loss of cervical lordosis. No significant abnormality of paravertebral soft tissue. Normal height and signal intensity of vertebral bodies with anterior fusion of C4, C5 and C6. Stable fusion. C1-C2. Normal. C2-C3. Normal. C3-C4. There is moderate to severe bilateral neural foramina narrowing and central canal spinal stenosis secondary to disc osteophyte complex and uncovertebral joint hypertrophy and facet joint hypertrophy. C4-C5: Bilateral mild neuroforaminal narrowing without central canal spinal stenosis. C5-C6. Mild bilateral neural foramina narrowing without central canal spinal stenosis. C6-C7. Mild to moderate bilateral neural foramina narrowing secondary to disc osteophyte complex and uncovertebral joint hypertrophy and facet hypertrophy. No definite central canal spinal stenosis. C7-T1 normal. No evidence of cord edema or hemorrhage. Impression: Stable fusion. Multilevel bilateral neuroforaminal narrowing and central canal spinal stenosis as detailed above.
== END 2018-11-11 07:43 | disposition home or self-care (01) ==
LOC: MRI 07:42
PROVIDERS: ATTEND Orthopaedic Surgery
DX: M48.02 Spinal stenosis, cervical region (principal); I10 Essential (primary) hypertension; J45.909 Unspecified asthma, uncomplicated; Z90.710 Acquired absence of both cervix and uterus
CPT/HCPCS: 72141

== ENCOUNTER 2019-02-09 08:19 | Outpatient (CLI) | payer MEDICARE ==
--- NOTE | 2019-02-09 09:33 | XRay Report ---
CERVICAL SPINE, 2 VIEWS History: Stenosis of cervical spine with myelopathy. Findings: Anterior fusion changes from C3-C6 appears unchanged in position and alignment since 12/14/18 exam. There is straightening of the normal cervical lordosis. Osteopenia is also suspected. Moderate multilevel degenerative disc disease and facet arthropathy are stable. Prevertebral soft tissue swelling has resolved IMPRESSION: Stable appearance of anterior cervical fusion since 12/24/18. Cervical spondylosis. Mild osteopenia.
== END 2019-02-09 08:20 | disposition home or self-care (01) ==
LOC: XRAY 08:19
PROVIDERS: ATTEND Neurological Surgery
DX: M47.812 Spondylosis without myelopathy or radiculopathy, cervical region (principal); M50.30 Other cervical disc degeneration, unspecified cervical region; M43.22 Fusion of spine, cervical region; M85.88 Other specified disorders of bone density and structure, other site; E78.00 Pure hypercholesterolemia, unspecified; K21.9 Gastro-esophageal reflux disease without esophagitis; Z90.710 Acquired absence of both cervix and uterus
CPT/HCPCS: 72040

== ENCOUNTER 2022-01-22 08:35 | Outpatient (CLI) | payer MEDICARE ==
--- NOTE | 2022-01-22 10:10 | XRay Report ---
LEFT FINGER(S) 3 VIEW(S) INDICATION / CLINICAL INFORMATION: PAIN IN LEFT HAND M79.642 COMPARISON: None available. FINDINGS: BONES / JOINT(S): No acute fracture or subluxation. Mild thumb interphalangeal degenerative arthrosis . No osseous erosions. Subjective osteopenia. SOFT TISSUES: No significant abnormality. ADDITIONAL FINDINGS: None. IMPRESSION: 1. No acute findings. Signer Name: Anastasiia Russell MD Signed: 01/22/2022 10:05 AM Workstation Name: [id number]
== END 2022-01-22 08:36 | disposition home or self-care (01) ==
LOC: XRAY 08:35
PROVIDERS: ATTEND Orthopaedic Surgery
DX: M19.042 Primary osteoarthritis, left hand (principal); M85.842 Other specified disorders of bone density and structure, left hand